=== PATIENT | male | born 1960 | race Caucasian/White ===

== ENCOUNTER 2017-10-23 13:41 | Emergency (ER) | payer OTHER ==
[~2017-10-23] VITALS: Ht 180.3 cm; Wt 81.8 kg
[2017-10-23] MEDS ORDERED: bp meds PO (13:51)
[2017-10-23] MEDS ORDERED: [UNRECOGNIZED DRUG - OTHER] PO (13:51)
[2017-10-23] MEDS ORDERED: METF500T4 PO (13:51)
[2017-10-23 13:57] LABS: GLUCOSE,POINT OF CARE 406 MG/DL (70-110)
[2017-10-23 15:35] VITALS: BP 150/85
== END 2017-10-23 16:20 | disposition home or self-care (01) ==
LOC: EMS 13:42
DX: L98.8 Other specified disorders of the skin and subcutaneous tissue (principal); E78.00 Pure hypercholesterolemia, unspecified; I10 Essential (primary) hypertension
CPT/HCPCS: 76870; 82962; 99284

== ENCOUNTER 2017-10-28 14:29 | Emergency (ER) | payer OTHER ==
[~2017-10-28] VITALS: Ht 175.3 cm; Wt 97.7 kg
[~2017-10-28 14:29] MED LIST: METF500T4 PO; [UNRECOGNIZED DRUG - OTHER] PO; bp meds PO
[2017-10-28 15:42] LABS: GLUCOSE,POINT OF CARE 340 MG/DL (70-110)
[2017-10-28] MEDS ORDERED: LIDOCAINE HCL 1% 10 ML VIAL INJ ONE (19:15)
[2017-10-28] MEDS ORDERED: POVIDONE-IODINE 10% 15 ML SOLUTION UD TP ONE (19:15)
[2017-10-28 19:40] VITALS: BP 140/81
== END 2017-10-28 19:54 | disposition home or self-care (01) ==
LOC: EMS 14:31
DX: N49.2 Inflammatory disorders of scrotum (principal); I11.9 Hypertensive heart disease without heart failure; E78.00 Pure hypercholesterolemia, unspecified
CPT/HCPCS: 55100; 82962; 99284; J3490

== ENCOUNTER 2020-04-27 10:44 | Inpatient (IN) | payer OTHER ==
[~2020-04-27] VITALS: Ht 175.3 cm; Wt 98.4 kg
[2020-04-27] VITALS (9 sets, daily range): BP systolic 106–171; BP diastolic 64–86
[~2020-04-27 10:44] MED LIST changes: +ATOR40TA28 PO; +CARV25 PO; +CLOP75TA3 PO; +FERR-89 PO; +GABA-1181 PO; +GLIP5 PO; +ISOS30TA6 PO; +LISI-661 PO; -METF500T4 PO; +MULT-1203 PO; +SENN8.6T20 PO; -[UNRECOGNIZED DRUG - OTHER] PO; -bp meds PO
[2020-04-27 13:34] LABS: BASOPHILS % (AUTO) 1.9 % (0.0-2.0); EOSINOPHILS % (AUTO) 4.5 % (1.0-6.0); LYMPHOCYTES % (AUTO) 10.7 % (22.0-44.0); MEAN CORPUSCULAR HEMOGLOBIN 29.2 pg (26.0-34.0); MEAN CORPUSCULAR HGB CONC 33.2 G/dL (31.0-37.0); MEAN CORPUSCULAR VOLUME 88 fL (80-100); MONOCYTES # (AUTO) 0.9 K/uL (0.1-1.0); NEUTROPHILS # (AUTO) 6.6 K/uL (1.8-7.7); NEUTROPHILS % (AUTO) 72.9 % (40.0-70.0); PLATELET COUNT (AUTO) 258 K/uL (150-450); RED BLOOD CELL COUNT(AUTO) 2.24 MIL/uL (4.50-5.90); RED CELL DISTRIBUTION WIDTH 15.3 % (11.5-14.5)
[2020-04-27 13:40] LABS: HEMATOCRIT 19.7 % (41-53); HEMOGLOBIN 6.6 g/dL (13.5-17.5)
[2020-04-27 13:42] LABS: CALCIUM, TOTAL 8.7 mg/dL (8.8-10.5); CREATININE 3.15 mg/dL (0.60-1.30); POTASSIUM 5.2 mmol/L (3.5-5.1)
[2020-04-27 13:48] LABS: ALBUMIN 2.3 g/dL (3.4-5.0); BILIRUBIN,TOTAL 0.3 mg/dL (0.1-1.0); C-REACTIVE PROTEIN QUANT 14.86 mg/dL (0.00-0.30)
[2020-04-27 13:51] LABS: LACTIC ACID 1.2 mmol/L (0.4-2.0)
[2020-04-27] MEDS ORDERED: VANCOMYCIN HCL 1 GM/D5% WATER 200 ML IV ONE (14:00)
[2020-04-27] MEDS ORDERED: SODIUM CHLORIDE 0.9% 1,000 ML IV ONE (14:00)
[2020-04-27] MEDS ORDERED: PIPERACILLIN/TAZO 3.375 GM/D5W 50 ML IV ONE (14:00)
[2020-04-27 14:42] LABS: ERYTHROCYTE SEDIMENTATION RATE > 150 MM/HR (0-15)
[2020-04-27] MEDS ORDERED: OxyCODONE HCL/ACETAMINOPHEN 5-325 MG TABLET PO PRN (15:00)
[2020-04-27] MEDS ORDERED: ACETAMINOPHEN 325 MG TABLET PO PRN ×2 (15:00)
[2020-04-27] MEDS ORDERED: ONDANSETRON HCL 4 MG/2 ML VIAL IVP PRN (15:00)
[2020-04-27] MEDS ORDERED: 0.9% SODIUM CHLORIDE 10 ML SYRINGE IVP PRN (15:00)
[2020-04-27] MEDS ORDERED: MORPHINE SULFATE 2 MG/ML SYRINGE IVP PRN ×2 (15:00→17:15)
[2020-04-27] MEDS ORDERED: DEXTROSE 50%-WATER 25 GM/50 ML SYRINGE IVP PRN (15:00)
[2020-04-27] MEDS: INSULIN LISPRO 100 UNITS/ML SQ PRN ×2 (17:03→20:32)
[2020-04-27] MEDS: DiphenhydrAMINE HCL 50 MG/ML VIAL IVP PRN (17:35)
[2020-04-27] MEDS: ATORVASTATIN CALCIUM 20 MG TABLET PO SCH (20:31)
[2020-04-27] MEDS: HEPARIN SODIUM,PORCINE 5,000 UNITS/ML VIAL SQ SCH (20:31)
[2020-04-27] MEDS: CARVEDILOL 6.25 MG TABLET PO SCH (20:31)
[2020-04-27] MEDS: DOCUSATE SODIUM 100 MG CAPSULE PO SCH (20:31)
[2020-04-27] MEDS ORDERED: SODIUM CHLORIDE 0.9% 500 ML IV ONE (20:47)
[2020-04-27] MEDS: PIPERACILLIN SODIUM/TAZOBACTAM 2.25 GM in DEXTROSE 5%-WATER 50 ML IV SCH (21:09)
[2020-04-27] MEDS: MORPHINE SULFATE 4 MG/ML SYRINGE IVP PRN (21:10)
[2020-04-27] MEDS ORDERED: DiphenhydrAMINE HCL 50 MG/ML VIAL IVP ONE (23:00)
[2020-04-27] MEDS ORDERED: FAMOTIDINE 10 MG/ML 2 ML VIAL IVP ONE (23:00)
[2020-04-28 00:31] LABS: HEMATOCRIT 23.9 % (41-53)
[2020-04-28 02:03] LABS: GLUCOMETER DEV NAME(LOC) 6S.1; GLUCOSE,POINT OF CARE 307 MG/DL (70-110)
[2020-04-28 02:03] LABS: GLUCOMETER DEV NAME(LOC) 6S.1; GLUCOSE,POINT OF CARE 287 MG/DL (70-110)
[2020-04-28 03:49] VITALS: BP 158/78
[2020-04-28] MEDS: PIPERACILLIN SODIUM/TAZOBACTAM 2.25 GM in DEXTROSE 5%-WATER 50 ML IV SCH ×4 (03:49→20:57)
[2020-04-28 05:27] LABS: APPEARANCE,URINE CLEAR (CLEAR); BILIRUBIN,URINE NEGATIVE (NEGATIVE); GLUCOSE, URINE (UA) 100 mg/dL (NEGATIVE); KETONES,URINE NEGATIVE (NEGATIVE); LEUKOCYTE ESTERASE ,URINE NEGATIVE (NEGATIVE); NITRATE,URINE NEGATIVE (NEGATIVE); OCCULT BLOOD,URINE NEGATIVE (NEGATIVE); PH,URINE 5.5 (5.0-8.0); PROTEIN,URINE SEE CONFIRM (NEGATIVE); UROBILINOGEN,URINE 0.2 mg/dL (<=1.0)
[2020-04-28] MEDS: INSULIN LISPRO 100 UNITS/ML SQ PRN ×4 (05:41→21:26)
[2020-04-28 05:49] LABS: SULFOSALICYLIC ACID,URINE 2+ (Negative)
[2020-04-28 05:51] LABS: BACTERIA,URINE Rare /HPF (None Seen); RBC,URINE None Seen /HPF (0-2); SQUAMOUS EPITHELIAL CELL,UR Few /LPF (None Seen); WBC,URINE 0-2 /HPF (0-5)
[2020-04-28] MEDS: MORPHINE SULFATE 4 MG/ML SYRINGE IVP PRN ×5 (05:51→23:42)
[2020-04-28 06:52] LABS: GLUCOMETER DEV NAME(LOC) 6S.1; GLUCOSE,POINT OF CARE 227 MG/DL (70-110)
[2020-04-28] MEDS: HEPARIN SODIUM,PORCINE 5,000 UNITS/ML VIAL SQ SCH (08:15)
[2020-04-28] MEDS: DOCUSATE SODIUM 100 MG CAPSULE PO SCH ×2 (08:15→20:58)
[2020-04-28] MEDS: CARVEDILOL 6.25 MG TABLET PO SCH ×2 (08:15→20:58)
[2020-04-28 08:53] VITALS: BP 138/77
[2020-04-28] MEDS ORDERED: ASPIRIN 81 MG CHEWABLE TABLET PO SCH (09:00)
[2020-04-28] MEDS ORDERED: FAMOTIDINE 20 MG TABLET PO SCH (09:00)
[2020-04-28] MEDS: DiphenhydrAMINE HCL 50 MG/ML VIAL IVP PRN ×2 (09:56→17:58)
[2020-04-28 12:28] LABS: BASOPHILS % (AUTO) 1.1 % (0.0-2.0); EOSINOPHILS % (AUTO) 5.9 % (1.0-6.0); HEMATOCRIT 25.4 % (41-53); HEMOGLOBIN 8.4 g/dL (13.5-17.5); LYMPHOCYTES # (AUTO) 0.6 K/uL (1.0-4.8); LYMPHOCYTES % (AUTO) 5.4 % (22.0-44.0); MEAN CORPUSCULAR HEMOGLOBIN 29.2 pg (26.0-34.0); MEAN CORPUSCULAR HGB CONC 33.3 G/dL (31.0-37.0); MEAN CORPUSCULAR VOLUME 88 fL (80-100); MONOCYTES # (AUTO) 0.6 K/uL (0.1-1.0); MONOCYTES % (AUTO) 5.6 % (2.0-9.0); NEUTROPHILS # (AUTO) 8.8 K/uL (1.8-7.7); PLATELET COUNT (AUTO) 253 K/uL (150-450); RED BLOOD CELL COUNT(AUTO) 2.89 MIL/uL (4.50-5.90); RED CELL DISTRIBUTION WIDTH 15.4 % (11.5-14.5)
[2020-04-28] MEDS: PANTOPRAZOLE SODIUM 40 MG/VIAL IVP SCH ×2 (12:35→20:58)
[2020-04-28 12:36] LABS: CALCIUM, TOTAL 8.5 mg/dL (8.8-10.5); CREATININE 2.99 mg/dL (0.60-1.30); POTASSIUM 4.9 mmol/L (3.5-5.1)
[2020-04-28 13:14] LABS: ALBUMIN 2.2 g/dL (3.4-5.0); BILIRUBIN,TOTAL 0.3 mg/dL (0.1-1.0); TOTAL PROTEIN, SERUM 6.9 g/dL (6.4-8.2)
[2020-04-28] MEDS: SOD FERRIC GLUC COMPLX/SUCROSE 125 MG in SODIUM CHLORIDE 0.9% 100 ML IV SCH (15:01)
[2020-04-28 15:19] LABS: GLUCOMETER DEV NAME(LOC) 6N.2; GLUCOSE,POINT OF CARE 326 MG/DL (70-110)
[2020-04-28 16:11] VITALS: BP 153/73
[2020-04-28] MEDS: LEVOFLOXACIN 750 MG TABLET PO SCH (19:36)
[2020-04-28 19:53] VITALS: BP 150/82
[2020-04-28 19:53] LABS: GLUCOMETER DEV NAME(LOC) 6S.1; GLUCOSE,POINT OF CARE 274 MG/DL (70-110)
[2020-04-28] MEDS: ATORVASTATIN CALCIUM 20 MG TABLET PO SCH (20:58)
[2020-04-28 21:26] LABS: GLUCOMETER DEV NAME(LOC) 6N.2; GLUCOSE,POINT OF CARE 298 MG/DL (70-110)
[2020-04-29] MEDS: MORPHINE SULFATE 4 MG/ML SYRINGE IVP PRN ×5 (04:39→21:07)
[2020-04-29 05:50] VITALS: BP 150/82
[2020-04-29] MEDS: INSULIN LISPRO 100 UNITS/ML SQ PRN ×4 (06:18→21:38)
[2020-04-29 07:03] LABS: BASOPHILS % (AUTO) 0.7 % (0.0-2.0); EOSINOPHILS % (AUTO) 6.9 % (1.0-6.0); HEMOGLOBIN 9.3 g/dL (13.5-17.5); LYMPHOCYTES # (AUTO) 0.8 K/uL (1.0-4.8); LYMPHOCYTES % (AUTO) 7.2 % (22.0-44.0); MEAN CORPUSCULAR HEMOGLOBIN 29.5 pg (26.0-34.0); MEAN CORPUSCULAR HGB CONC 33.3 G/dL (31.0-37.0); MEAN CORPUSCULAR VOLUME 89 fL (80-100); MONOCYTES # (AUTO) 0.7 K/uL (0.1-1.0); MONOCYTES % (AUTO) 6.7 % (2.0-9.0); NEUTROPHILS # (AUTO) 8.4 K/uL (1.8-7.7); NEUTROPHILS % (AUTO) 78.5 % (40.0-70.0); PLATELET COUNT (AUTO) 259 K/uL (150-450); RED BLOOD CELL COUNT(AUTO) 3.16 MIL/uL (4.50-5.90); RED CELL DISTRIBUTION WIDTH 15.6 % (11.5-14.5)
[2020-04-29 07:15] LABS: ALBUMIN 2.2 g/dL (3.4-5.0); BILIRUBIN,TOTAL 0.3 mg/dL (0.1-1.0); C-REACTIVE PROTEIN QUANT 12.52 mg/dL (0.00-0.30); CALCIUM, TOTAL 8.9 mg/dL (8.8-10.5); CREATININE 2.94 mg/dL (0.60-1.30); MAGNESIUM 1.4 mg/dL (1.80-2.40); PHOSPHORUS 2.1 mg/dL (2.5-4.9); TOTAL PROTEIN, SERUM 7.1 g/dL (6.4-8.2)
[2020-04-29 08:30] VITALS: BP 167/94
[2020-04-29] MEDS: DiphenhydrAMINE HCL 50 MG/ML VIAL IVP PRN ×2 (08:41→16:57)
[2020-04-29] MEDS: CARVEDILOL 6.25 MG TABLET PO SCH ×2 (08:42→21:28)
[2020-04-29] MEDS: PANTOPRAZOLE SODIUM 40 MG/VIAL IVP SCH ×2 (08:42→21:28)
[2020-04-29] MEDS: DOCUSATE SODIUM 100 MG CAPSULE PO SCH ×2 (08:42→21:28)
[2020-04-29] MEDS ORDERED: MAGNESIUM SULFATE 2 GM/WATER 50 ML IV ONE (09:30)
[2020-04-29] MEDS ORDERED: SODIUM PHOS,M-BASIC-D-BASIC 10 MEQ in DEXTROSE 5%-WATER 50 ML IV ONE (09:30)
[2020-04-29] MEDS ORDERED: SODIUM CHLORIDE 0.9% 500 ML IV ONE (11:39)
[2020-04-29 11:51] LABS: GLUCOMETER DEV NAME(LOC) 6S.1; GLUCOSE,POINT OF CARE 279 MG/DL (70-110)
[2020-04-29] MEDS ORDERED: SODIUM CL IRRIG SOLN BOTTLE 250 ML IRRIG ONE (12:56)
[2020-04-29 13:01] LABS: GLUCOMETER DEV NAME(LOC) 6N.2; GLUCOSE,POINT OF CARE 267 MG/DL (70-110)
[2020-04-29 14:00] VITALS: BP 149/70
[2020-04-29] MEDS: HydrALAZINE HCL 50 MG TABLET PO SCH ×2 (14:21→21:28)
[2020-04-29] MEDS: SOD FERRIC GLUC COMPLX/SUCROSE 125 MG in SODIUM CHLORIDE 0.9% 100 ML IV SCH (15:03)
[2020-04-29 17:12] VITALS: BP 154/84
[2020-04-29 19:55] VITALS: BP 156/87
[2020-04-29] MEDS: ATORVASTATIN CALCIUM 20 MG TABLET PO SCH (21:28)
[2020-04-29 22:05] LABS: GLUCOMETER DEV NAME(LOC) 6N.2; GLUCOSE,POINT OF CARE 305 MG/DL (70-110)
[2020-04-29 23:29] VITALS: BP 147/64
[2020-04-30] MEDS: MORPHINE SULFATE 4 MG/ML SYRINGE IVP PRN ×6 (01:08→21:51)
[2020-04-30 04:00] VITALS: BP 144/78
[2020-04-30] MEDS: INSULIN LISPRO 100 UNITS/ML SQ PRN ×4 (05:41→21:56)
[2020-04-30 05:47] LABS: GLUCOMETER DEV NAME(LOC) 6S.1; GLUCOSE,POINT OF CARE 243 MG/DL (70-110)
[2020-04-30 05:47] LABS: GLUCOMETER DEV NAME(LOC) 6S.1; GLUCOSE,POINT OF CARE 375 MG/DL (70-110)
[2020-04-30 06:13] LABS: BASOPHILS % (AUTO) 0.4 % (0.0-2.0); EOSINOPHILS % (AUTO) 5.4 % (1.0-6.0); HEMATOCRIT 25.7 % (41-53); HEMOGLOBIN 8.6 g/dL (13.5-17.5); LYMPHOCYTES % (AUTO) 9.2 % (22.0-44.0); MEAN CORPUSCULAR HEMOGLOBIN 29.3 pg (26.0-34.0); MEAN CORPUSCULAR HGB CONC 33.7 G/dL (31.0-37.0); MEAN CORPUSCULAR VOLUME 87 fL (80-100); MONOCYTES % (AUTO) 9.4 % (2.0-9.0); NEUTROPHILS # (AUTO) 8.1 K/uL (1.8-7.7); NEUTROPHILS % (AUTO) 75.6 % (40.0-70.0); PLATELET COUNT (AUTO) 244 K/uL (150-450); RED BLOOD CELL COUNT(AUTO) 2.95 MIL/uL (4.50-5.90); RED CELL DISTRIBUTION WIDTH 15.7 % (11.5-14.5)
[2020-04-30 06:31] LABS: CREATININE 2.81 mg/dL (0.60-1.30); POTASSIUM 5.1 mmol/L (3.5-5.1)
[2020-04-30 08:52] VITALS: BP 142/76
[2020-04-30] MEDS ORDERED: EPOETIN ALFA 10,000 UNITS/ML VIAL SQ SCH (09:00)
[2020-04-30] MEDS: DOCUSATE SODIUM 100 MG CAPSULE PO SCH ×2 (09:00→21:42)
[2020-04-30] MEDS: LEVOFLOXACIN 750 MG TABLET PO SCH (09:18)
[2020-04-30] MEDS: CARVEDILOL 6.25 MG TABLET PO SCH ×2 (09:19→21:42)
[2020-04-30] MEDS: HydrALAZINE HCL 50 MG TABLET PO SCH ×2 (09:19→21:42)
[2020-04-30 11:39] VITALS: BP 154/70
[2020-04-30] MEDS: SOD FERRIC GLUC COMPLX/SUCROSE 125 MG in SODIUM CHLORIDE 0.9% 100 ML IV SCH (13:55)
[2020-04-30 15:51] VITALS: BP 149/71
[2020-04-30] MEDS: DiphenhydrAMINE HCL 50 MG/ML VIAL IVP PRN (15:58)
[2020-04-30] MEDS: MetroNIDAZOLE 500 MG TABLET PO SCH ×2 (15:58→23:28)
[2020-04-30 19:40] VITALS: BP 139/70
[2020-04-30 20:24] LABS: GLUCOMETER DEV NAME(LOC) 6N.2; GLUCOSE,POINT OF CARE 276 MG/DL (70-110)
[2020-04-30 20:33] LABS: GLUCOMETER DEV NAME(LOC) 6S.1; GLUCOSE,POINT OF CARE 331 MG/DL (70-110)
[2020-04-30] MEDS: ATORVASTATIN CALCIUM 20 MG TABLET PO SCH (21:42)
[2020-04-30 23:49] LABS: GLUCOMETER DEV NAME(LOC) 6S.1; GLUCOSE,POINT OF CARE 290 MG/DL (70-110)
[2020-05-01 00:23] VITALS: BP 139/65
[2020-05-01] MEDS: MORPHINE SULFATE 4 MG/ML SYRINGE IVP PRN ×3 (01:51→09:55)
[2020-05-01 05:10] VITALS: BP 154/79
[2020-05-01] MEDS: INSULIN LISPRO 100 UNITS/ML SQ PRN ×2 (05:49→11:39)
[2020-05-01 06:32] LABS: BASOPHILS % (AUTO) 0.6 % (0.0-2.0); EOSINOPHILS % (AUTO) 6.9 % (1.0-6.0); HEMATOCRIT 25.7 % (41-53); HEMOGLOBIN 8.5 g/dL (13.5-17.5); LYMPHOCYTES # (AUTO) 1.2 K/uL (1.0-4.8); LYMPHOCYTES % (AUTO) 11.4 % (22.0-44.0); MEAN CORPUSCULAR HEMOGLOBIN 28.7 pg (26.0-34.0); MEAN CORPUSCULAR VOLUME 87 fL (80-100); NEUTROPHILS # (AUTO) 7.4 K/uL (1.8-7.7); NEUTROPHILS % (AUTO) 71.1 % (40.0-70.0); PLATELET COUNT (AUTO) 255 K/uL (150-450); RED BLOOD CELL COUNT(AUTO) 2.95 MIL/uL (4.50-5.90); RED CELL DISTRIBUTION WIDTH 15.5 % (11.5-14.5)
[2020-05-01 06:56] LABS: ALBUMIN 2.1 g/dL (3.4-5.0); BILIRUBIN,TOTAL 0.2 mg/dL (0.1-1.0); C-REACTIVE PROTEIN QUANT 10.64 mg/dL (0.00-0.30); CREATININE 2.59 mg/dL (0.60-1.30); POTASSIUM 4.8 mmol/L (3.5-5.1); TOTAL PROTEIN, SERUM 6.8 g/dL (6.4-8.2)
[2020-05-01 08:36] VITALS: BP 148/78
[2020-05-01] MEDS ORDERED: PANTOPRAZOLE SODIUM 40 MG DR TABLET PO SCH (09:00)
[2020-05-01] MEDS: DOCUSATE SODIUM 100 MG CAPSULE PO SCH (09:14)
[2020-05-01] MEDS: HydrALAZINE HCL 50 MG TABLET PO SCH (09:14)
[2020-05-01] MEDS: MetroNIDAZOLE 500 MG TABLET PO SCH (09:14)
[2020-05-01] MEDS: CARVEDILOL 6.25 MG TABLET PO SCH (09:14)
[2020-05-01 11:37] VITALS: BP 140/80
[2020-05-01] MEDS ORDERED: LEVO750T68 PO (14:03)
[2020-05-01] MEDS ORDERED: METR500 PO (14:03)
[2020-05-01 18:12] LABS: GLUCOMETER DEV NAME(LOC) 6S.1; GLUCOSE,POINT OF CARE 226 MG/DL (70-110)
[2020-05-01 18:12] LABS: GLUCOMETER DEV NAME(LOC) 6S.1; GLUCOSE,POINT OF CARE 349 MG/DL (70-110)
== END 2020-05-01 14:20 | disposition home or self-care (01) | DRG 349 ==
LOC: EMS 10:47 → 6N 14:55
PROVIDERS: ADMIT Internal Medicine; ATTEND Internal Medicine
PROC: 30233N1 Transfusion of Nonautologous Red Blood Cells into Peripheral Vein, Percutaneous Approach (ICD-10-PCS; principal; 2020-04-27)
DX: T87.44 Infection of amputation stump, left lower extremity (principal); E11.52 Type 2 diabetes mellitus with diabetic peripheral angiopathy with gangrene; E11.22 Type 2 diabetes mellitus with diabetic chronic kidney disease; I25.10 Atherosclerotic heart disease of native coronary artery without angina pectoris; D63.8 Anemia in other chronic diseases classified elsewhere; E43 Unspecified severe protein-calorie malnutrition; N17.9 Acute kidney failure, unspecified; E87.5 Hyperkalemia; E87.1 Hypo-osmolality and hyponatremia; E78.5 Hyperlipidemia, unspecified; I12.9 Hypertensive chronic kidney disease with stage 1 through stage 4 chronic kidney disease, or unspecified chronic kidney disease; L03.116 Cellulitis of left lower limb; E83.42 Hypomagnesemia; E83.39 Other disorders of phosphorus metabolism; N18.9 Chronic kidney disease, unspecified; E78.00 Pure hypercholesterolemia, unspecified; I42.9 Cardiomyopathy, unspecified; E11.69 Type 2 diabetes mellitus with other specified complication; M86.8X7 Other osteomyelitis, ankle and foot; Y83.5 Amputation of limb(s) as the cause of abnormal reaction of the patient, or of later complication, without mention of misadventure at the time of the procedure; Z20.828 Contact with and (suspected) exposure to other viral communicable diseases; Z91.19 Patient's noncompliance with other medical treatment and regimen; Z87.891 Personal history of nicotine dependence; Z95.810 Presence of automatic (implantable) cardiac defibrillator; Z95.1 Presence of aortocoronary bypass graft; Z79.84 Long term (current) use of oral hypoglycemic drugs; Z68.32 Body mass index [BMI] 32.0-32.9, adult; Z79.899 Other long term (current) drug therapy
CPT/HCPCS: 36430; 73700; 82270; 82728; 83540; 83550; 83605; 83735; 84100; 84145; 85014; 85018; 85651; 86140; 86850; 86880; 86900; 86901; 86923; 87040; 87081; C9113; J0885; J1200; J1644; J2270; J2543; J2916; J3370; J3475; J3490; J7030; J7040; J7050; J7060; P9016; 36415-L1; 36415-TC; 71045-TC; U0003-CS; X7700

== ENCOUNTER 2020-05-01 18:46 | Emergency (ER) | payer OTHER ==
[~2020-05-01] VITALS: Ht 175.3 cm; Wt 90.9 kg
[~2020-05-01 18:46] MED LIST changes: +LEVO750T68 PO; +METR500 PO
[2020-05-02] MEDS ORDERED: LEVOFLOXACIN 500 MG TABLET PO ONE (01:30)
[2020-05-02] MEDS ORDERED: MetroNIDAZOLE 250 MG TABLET PO ONE (01:30)
[2020-05-02] MEDS ORDERED: LEVOFLOXACIN 250 MG TABLET PO ONE (01:30)
[2020-05-02] MEDS ORDERED: MetroNIDAZOLE 500 MG TABLET PO ONE (01:30)
[2020-05-02] MEDS ORDERED: MetFORMIN HCL 500 MG TABLET PO ONE (01:30)
[2020-05-02] MEDS ORDERED: DiphenhydrAMINE HCL 25 MG CAPSULE PO ONE (01:45)
[2020-05-02 04:15] LABS: GLUCOSE,POINT OF CARE 333 MG/DL (70-110)
[2020-05-02 08:35] LABS: GLUCOSE,POINT OF CARE 290 MG/DL (70-110)
[2020-05-02 11:20] VITALS: BP 140/90
== END 2020-05-02 11:23 | disposition home or self-care (01) ==
LOC: EMS 18:46
DX: E11.65 Type 2 diabetes mellitus with hyperglycemia (principal); L03.116 Cellulitis of left lower limb; R62.7 Adult failure to thrive; I10 Essential (primary) hypertension; E78.00 Pure hypercholesterolemia, unspecified; Z88.1 Allergy status to other antibiotic agents; Z79.84 Long term (current) use of oral hypoglycemic drugs; Z79.899 Other long term (current) drug therapy; Z87.891 Personal history of nicotine dependence; Z68.29 Body mass index [BMI] 29.0-29.9, adult